=== PATIENT | male | born 1955 | race Caucasian/White ===

== ENCOUNTER → 2017-04-28 | Outpatient (CLI) | payer OTHER, SELFPAY | PROVIDERS: Visit Provider Nurse Practitioner | DX: R92.8 Other abnormal and inconclusive findings on diagnostic imaging of breast (principal) ==

== ENCOUNTER 2017-05-10 10:35 | Emergency (ER) | payer OTHER, SELFPAY ==
[2017-05-10 11:02] VITALS: BP 124/85; PULSE 105; RESP 20; TEMP 37.7; O2SAT 98; BMI 24.4
--- NOTE | 2017-05-10 11:35 | HMH.EDUTC ---
[facility] [place] Disposition Clinical Impression: Influenza Disposition: Home, Self-Care Condition on Discharge: Good Instructions: Influenza (Alternative Therapy), DI for Influenza -- Adult Additional Instructions: Drink plenty of water Take medications as prescribed No work for the next few days as you are contagious, you may return to work when you are fever free for 24 hours without taking Motrin or Tylenol for fever Over the counter Motrin or Tylenol as needed for fever or pain Follow up with family doctor Return if needed Prescriptions: Oseltamivir Phosphate [Tamiflu 75mg Capsule] 75 mg PO BID 5 Days #10 capsule Referrals: Cliff Montelongo MD [Primary Care Provider] - Time of Disposition: 11:54 Medical Decision Making Vital Signs: 05/10/17 11:02 Temperature 99.8 F H Temperature Source Oral Pulse Rate [Right Radial] 105 H Respiratory Rate 20 Blood Pressure [Right Arm] 124/85 Blood Pressure Mean [Right Arm] 98 Blood Pressure Source [Right Arm] Automatic Cuff Blood Pressure Position [Right Arm] Sitting 02 Sat by Pulse Oximetry 98 Oxygen Delivery Method Room Air - Mateo Inquiry Pt receiving controlled substance: No Mateo was queried for this patient: No [facility] [place] HPI - General Chief complaint: Urgent Treatment Center Stated complaint: de la rosa cough Time Seen by Provider: 05/10/17 11:40 Mode of Arrival: Ambulatory Source of Information: Patient Limitations: No Limitations Description of Symptoms (Recalled from Triage Doc. by RN): WENT TO DR ON TUESDAY WAS DIAGNOSED WITH BRONCHITIS AND SINUS INFECTION AND FEELS WORSE. WAS PUT ON CEFDINIR. HEENT Symptoms (Recalled from RN notes): Yes (SINUS INFECTION) Resp Symptoms (Recalled from RN notes): Yes (BRONCHITIS) Skin Symptoms (Recalled from RN notes): No MS Symptoms (Recalled from RN notes): No Functional Status (Recalled from RN notes): NA - History of Present Illness Provider Complaint: Patient state that he seen his family doctor on Tuesday and was diagnosed with bronchitis and cough State that he was started on Medication Then was diagnosed with FLU yesterday and today he feels even worse and now running a fever and thinks he may have the flu too Onset (ago): day(s) (2-3) Radiation: non-radiation Severity: moderate Severity scale (1-10): 4 Quality: other Consistency: constant Relieving factors: none Exacerbating factors: none Associated symptoms: cough, fever/chills, headaches Treatments prior to arrival: other - Related Data Previous Rx's Medication Instructions Recorded Oseltamivir Phosphate [Tamiflu 75 mg PO BID 5 Days #10 capsule 05/10/17 75mg Capsule] Allergies Allergy/AdvReac Type Severity Reaction Status Date / Time No Known Drug Allergies Allergy Unknown Verified 05/10/17 11:08 [NKDA] - Worker's Comp Is this a Worker's Comp case?: No H History Medical History: Denies:: Cancer, Diabetes Mellitus Type 1, Diabetes Mellitus Type 2, MRSA Amputation: No Fractures: No - *Social History Smoking Status: Never smoker Alcohol Intake: never - Psychiatric History Expresses thoughts of harming self/others: None Suicide Plan Description: No Plan ROS Obtained: Yes All systems reviewed & no additional complaints except as noted - Constitutional Reports body ache(s), Reports chills, Reports fever(s), Reports headache(s) - Eyes Denies blurry vision, Denies change in vision - ENT Reports headache(s), Reports nasal discharge, Reports sore throat - Cardiovascular Denies chest pain - Respiratory Reports cough, Denies shortness of breath, Denies coughing up blood, Denies wheezing - Gastrointestinal Denies abdominal pain Physical Exam - General General appearance: alert, in no apparent distress - Head Head exam: normal inspection - Eye Eye exam: Present: normal appearance, PERRL - ENT ENT exam: Present: other (th) - Expanded ENT Exam Throat exam: Present: other Comment: THroat mildly red, irritated,
--- NOTE | 2017-05-10 11:41 | ED_ITS ---
[facility] [place] Clinical Impression: Influenza Disposition: Home, Self-Care Condition on Discharge: Good Instructions: Influenza (Alternative Therapy), DI for Influenza -- Adult Additional Instructions: Drink plenty of water Take medications as prescribed No work for the next few days as you are contagious, you may return to work when you are fever free for 24 hours without taking Motrin or Tylenol for fever Over the counter Motrin or Tylenol as needed for fever or pain Follow up with family doctor Return if needed Prescriptions: Oseltamivir Phosphate [Tamiflu 75mg Capsule] 75 mg PO BID 5 Days #10 capsule Referrals: Cliff Montelongo MD [Primary Care Provider] - Time of Disposition: 11:54 Medical Decision Making Vital Signs: 05/10/17 11:02 Temperature 99.8 F H Temperature Source Oral Pulse Rate [Right Radial] 105 H Respiratory Rate 20 Blood Pressure [Right Arm] 124/85 Blood Pressure Mean [Right Arm] 98 Blood Pressure Source [Right Arm] Automatic Cuff Blood Pressure Position [Right Arm] Sitting 02 Sat by Pulse Oximetry 98 Oxygen Delivery Method Room Air - Mateo Inquiry Pt receiving controlled substance: No Mateo was queried for this patient: No [facility] [place] HPI - General Chief complaint: Urgent Treatment Center Stated complaint: de la rosa cough Time Seen by Provider: 05/10/17 11:40 Mode of Arrival: Ambulatory Source of Information: Patient Limitations: No Limitations Description of Symptoms (Recalled from Triage Doc. by RN): WENT TO DR ON TUESDAY WAS DIAGNOSED WITH BRONCHITIS AND SINUS INFECTION AND FEELS WORSE. WAS PUT ON CEFDINIR. HEENT Symptoms (Recalled from RN notes): Yes (SINUS INFECTION) Resp Symptoms (Recalled from RN notes): Yes (BRONCHITIS) Skin Symptoms (Recalled from RN notes): No MS Symptoms (Recalled from RN notes): No Functional Status (Recalled from RN notes): NA - History of Present Illness Provider Complaint: Patient state that he seen his family doctor on Tuesday and was diagnosed with bronchitis and cough State that he was started on Medication Then was diagnosed with FLU yesterday and today he feels even worse and now running a fever and thinks he may have the flu too Onset (ago): day(s) (2-3) Radiation: non-radiation Severity: moderate Severity scale (1-10): 4 Quality: other Consistency: constant Relieving factors: none Exacerbating factors: none Associated symptoms: cough, fever/chills, headaches Treatments prior to arrival: other - Related Data Previous Rx's Medication Instructions Recorded Oseltamivir Phosphate [Tamiflu 75 mg PO BID 5 Days #10 capsule 05/10/17 75mg Capsule] Allergies Allergy/AdvReac Type Severity Reaction Status Date / Time No Known Drug Allergies Allergy Unknown Verified 05/10/17 11:08 [NKDA] - Worker's Comp Is this a Worker's Comp case?: No H History Medical History: Denies:: Cancer, Diabetes Mellitus Type 1, Diabetes Mellitus Type 2, MRSA Amputation: No Fractures: No - *Social History Smoking Status: Never smoker Alcohol Intake: never - Psychiatric History Expresses thoughts of harming self/others: None Suicide Plan Description: No Plan ROS Obtained: Yes All systems reviewed & no additional complaints except as noted - Constitutional Reports body ache(s), Reports chills, Reports fever(s), Reports headache(s) - Eyes
[2017-05-10 16:16] LABS: UTC Influenza A Antigen Positive (Negative); UTC Influenza B Antigen Negative (Negative)
== END 2017-05-10 12:25 | disposition home or self-care (01) ==
PROVIDERS: Emergency Provider Nurse Practitioner; Family Provider Nurse Practitioner; PCP Family Medicine
DX: J10.1 Influenza due to other identified influenza virus with other respiratory manifestations (principal)
CPT/HCPCS: 87276; 87804; 99201

== ENCOUNTER 2020-02-23 12:17 | Emergency (ER) | payer MEDICARE, SELFPAY ==
[2020-02-23 12:31] VITALS: BP 144/91; PULSE 89; RESP 18; TEMP 36.9; O2SAT 99; BMI 25.7
--- NOTE | 2020-02-23 12:37 | HMH.EDUTC ---
[facility] [place] Impression: Shingles Qualifiers: Herpes zoster complications: without complications Qualified Code(s): B02.9 - Zoster without complications Disposition: Home, Self-Care Condition on Discharge: Good Instructions: Shingles, DI for Shingles, Acyclovir Additional Instructions: Take medication as prescribed Take your medicines exactly as prescribed. Antiviral medicine helps you get better faster and may help prevent later problems. Try not to scratch or pick at the blisters. They will crust over and fall off on their own if you leave them alone. Put cool, wet cloths on the area to relieve pain and itching. You can also use calamine lotion. Try not to use so much lotion that it cakes and is hard to get off. Do not use thick ointment, such as petroleum jelly, on the sores. This will keep them from drying and healing. To help remove loose crusts, soak them in tap water. This can help decrease oozing, and dry and soothe the skin. Take an [id number]-[id number] pain medicine, such as acetaminophen (Tylenol), ibuprofen (Advil, Motrin), or naproxen (Aleve). Avoid close contact with people until the blisters have healed. It is very important for you to avoid contact with anyone who has never had chickenpox or the chickenpox vaccine. women, young babies, and anyone else who has a hard time fighting infection (such as someone with HIV, diabetes, or cancer) is especially at risk Follow up with Eye Doctor if you notice them close to eye or on eye lid Follow up with Family Doctor if no improvement or any worsening of symptoms Straight to ER if any life threatening symptoms Return if needed Prescriptions: Acyclovir [Acyclovir 800mg tab] 800 mg PO 5XDAY 7 Days #35 tab Transmission Status: Pending to [facility] #[id number] Referrals: Tiffanie Melgar APRN [Primary Care Provider] - As needed Time of Disposition: 12:43 Medical Decision Making - Mateo Inquiry Pt receiving controlled substance: No Mateo was queried for this patient: No Vital Signs: 02/23/20 12:31 Temperature 98.4 F Temperature Source Oral Pulse Rate [Right Brachial] 89 Respiratory Rate 18 Blood Pressure [Right Arm] 144/91 H Blood Pressure Mean [Right Arm] 108 Blood Pressure Source [Right Arm] Automatic Cuff Blood Pressure Position [Right Arm] Sitting 02 Sat by Pulse Oximetry 99 [facility] [place] - General Stated complaint: shingles ? Time Seen by Provider: 02/23/20 12:37 Mode of Arrival: Ambulatory Description of Symptoms (Recalled from Triage Doc. by RN): Pt c/o painful rash on rt side of face and head x's 4 days HEENT Symptoms (Recalled from RN notes): No Resp Symptoms (Recalled from RN notes): No Skin Symptoms (Recalled from RN notes): Yes MS Symptoms (Recalled from RN notes): No Functional Status (Recalled from RN notes): wnl - History of Present Illness Provider Complaint: Patient state that the skin felt sore on the right side of his forehead for several days then this morning he noticed he was breaking out in a blister rash on on his forehead and worried that he may have shingles so he come in - Related Data Previous Rx's Medication Instructions Recorded Oseltamivir Phosphate [Tamiflu 75 mg PO BID 5 Days #10 capsule 05/10/17 75mg Capsule] Acyclovir [Acyclovir 800mg tab] 800 mg PO 5XDAY 7 Days #35 tab 02/23/20 Allergies Allergy/AdvReac Type Severity Reaction Status Date / Time No Known Drug Allergies Allergy Unknown Verified 05/10/17 11:08 [NKDA] - Worker's Comp Is this a Worker's Comp case?: No Is this an H Worker's Comp?: No Is this a Dierks Worker's Comp?: No [facility] History - Hepatitis A Screen Drug use history?: No High risk sexual behaviors?: No History of sexually transmitted infection?: No Currently employed?: No Childcare worker?: No Do you have indoor plumbing?: Yes Do you have electricity?: Yes Attestation statement:: This patient has been screened for Hepatitis A risk factors
[2020-02-23 13:16] VITALS: BP 144/91; PULSE 89; RESP 18; TEMP 36.9; O2SAT 99
== END 2020-02-23 13:17 | disposition home or self-care (01) ==
PROVIDERS: Emergency Provider Nurse Practitioner; PCP Nurse Practitioner Family
DX: B02.9 Zoster without complications (principal)
CPT/HCPCS: G0463; 99201

== ENCOUNTER 2022-06-07 09:30 | Emergency (ER) | payer MEDICARE, SELFPAY ==
[2022-06-07 09:50] VITALS: BP 140/86; PULSE 72; RESP 18; TEMP 36.8; O2SAT 98; BMI 24.9
--- NOTE | 2022-06-07 10:09 | EXP.UTC ---
Discharge Plan Disposition Patient Disposition: Home, Self-Care Condition: Good Prescriptions Prescriptions: New benzonatate 100 mg capsule 100 mg PO TID PRN (Reason: cough) Qty: 30 0RF azithromycin [Zithromax Z-Galen] 250 mg tablet See Rx Instructions .ROUTE .COMPLEX 5 Days Qty: 6 0RF Rx Instructions: For 250 mg dose pack: take 500 mg today (day 1), then 250 mg for 4 days (days 2-5) methylprednisolone [Medrol (Galen)] 4 mg tablets,dose pack See Rx Instructions .Route .COMPLEX 6 Days Qty: 21 0RF Rx Instructions: taper pack; No Action oseltamivir [Tamiflu] 75 MG capsule 75 mg PO BID 5 Days Qty: 10 0RF acyclovir 800 MG tablet 800 mg PO 5XDAY 7 Days Qty: 35 0RF Referrals Follow up/Referrals: Jaspreet Spain MD [Primary Care Provider] - See instructions Activity Restrictions/Add. Instructions Additional Instructions/Restrictions: Disucuss with your Physyican about Paxlovid if you decide you want to try it Use saline spray in nose may help with nasal congestion and dryness Make sure that you are drinking plenty of fluids Straight to ER if you start having any shortness of breath, pain in chest or any life threatening symptoms Clinical Impressions Clinical Impression: Sinusitis Instructions Patient Instructions: Sinusitis, Cough Discharge ED Provider: Savannah Heard [facility] [place] HPI General Stated complaint: home test positive,sore throat,headache Mode of Arrival: Ambulatory Source of Information: Patient Limitations: No Limitations Time Seen by Provider: 06/07/22 10:09 Description of Symptoms (Recalled from Triage Doc. by RN): PATIENT C/O SORE THROAT, FATIGUE, AND DRY COUGH X 2 DAYS. HE REPORTS A POSITIVE AT HOME COVID TEST HEENT Symptoms (Recalled from RN notes): Yes Resp Symptoms (Recalled from RN notes): Yes Skin Symptoms (Recalled from RN notes): No MS Symptoms (Recalled from RN notes): No Functional Status (Recalled from RN notes): WNL History of Present Illness Provider Complaint: Patient state that he has been having sinus congestion and dryness at times States that he has been having cough and sore throat States that he did take a home COVID test and it was positive but not how accurate it was States that he came in to get something to help with the cough and congestion Related Data Previous Rx's Medication Instructions Recorded oseltamivir 75 mg capsule (Tamiflu) 75 mg PO BID 5 days #10 caps 05/10/17 acyclovir 800 mg tablet 800 mg PO 5XDAY 7 days #35 tabs 02/23/20 azithromycin 250 mg tablet See Rx Instructions PO .COMPLEX 5 06/07/22 (Zithromax Z-Galen) days #6 tabs benzonatate 100 mg capsule 100 mg PO TID PRN cough #30 caps 06/07/22 methylprednisolone 4 mg tablets in See Rx Instructions .Route 06/07/22 a dose pack (Medrol (Galen)) .COMPLEX 6 days #21 tabs Allergies Allergy/AdvReac Type Severity Reaction Status Date / Time No Known Drug Allergies Allergy Unknown Verified 05/10/17 11:08 [NKDA] Worker's Comp Is this a Worker's Comp case?: No [facility] Disclaimer: The information contained in this section may have been updated after the patient was seen, as this information can be updated by other users. Medical History (Updated 06/07/22 @ 10:24 by Savannah Heard APRN) Hyperlipidemia Hypertension Surgical History (Updated 06/07/22 @ 10:01 by Jeanne Timmons RN) History of hand surgery History of shoulder surgery Social History (Updated 06/07/22 @ 10:01 by Jeanne Timmons RN) Smoking Status: Never smoker alcohol intake: never current occupational status: employed Travel in the last 8 weeks: None ROS Obtained: Yes All systems reviewed & no additional complaints except as documented and Yes Systems reviewed as appropriate & no additional complaints except as documented Constitutional Constitutional: Reports system reviewed and no additional complaints, except as documented and Reports as per HPI ENT Ears, Nose, Mouth, and Throat: R
[2022-06-07 10:27] VITALS: BP 140/86; PULSE 72; RESP 18; TEMP 36.8; O2SAT 98
== END 2022-06-07 10:31 | disposition home or self-care (01) ==
PROVIDERS: Emergency Provider Nurse Practitioner; PCP Family Medicine
DX: J32.9 Chronic sinusitis, unspecified (principal)
CPT/HCPCS: 99212; 99213; G0463

== ENCOUNTER → 2022-08-30 09:38 | Outpatient (CLI) | payer MEDICARE, SELFPAY ==
--- NOTE | 2022-08-30 09:48 | XR_ITS ---
FINAL REPORT CLINICAL HISTORY: foot pain FINDINGS: LEFT FOOT Three views of the left foot demonstrate no acute fracture or dislocation. There is mild hallux valgus deformity. Mild degenerative changes are seen. Chronic calcification is noted adjacent to the 2nd MTP joint. There is posterior calcaneal spurring. Soft tissues are unremarkable. IMPRESSION: Degenerative changes without acute bony abnormality. Reviewed, Interpreted and Dictated by Sang Moore III, MD Transcribed by Edith Ayers Authenticated and [facility]
--- NOTE | 2022-08-30 09:48 | XR_ITS ---
FINAL REPORT CLINICAL HISTORY: foot pain FINDINGS: RIGHT FOOT Three views of the right foot demonstrate no acute fracture or dislocation. Mild degenerative changes are seen. There is posterior calcaneal spurring. Soft tissues are unremarkable. IMPRESSION: Degenerative changes without acute bony abnormality. Reviewed, Interpreted and Dictated by Sang Moore III, MD Transcribed by Edith Ayers Authenticated and . [facility]
== END ==
PROVIDERS: PCP Family Medicine; Visit Provider Podiatrist
DX: M79.672 Pain in left foot (principal); M79.671 Pain in right foot
CPT/HCPCS: 73630

== ENCOUNTER → 2022-09-13 16:53 | Outpatient (CLI) | payer MEDICARE, SELFPAY | PROVIDERS: PCP Nurse Practitioner Family; Visit Provider Nurse Practitioner Family | DX: J02.9 Acute pharyngitis, unspecified (principal) | CPT/HCPCS: 87070 ==

== ENCOUNTER → 2023-01-12 23:18 | Outpatient (CLI) | payer MEDICARE, SELFPAY ==
[2023-01-12 17:59] LABS: Microscopic, Urine URINE MICROSCOPIC (MICROSCOPIC)
[2023-01-12 18:08] LABS: Appearance,Urine CLEAR (Clear); Bilirubin,Urine Negative (Negative); Blood, Urine TRACE-I (Negative); Color,Urine YELLOW (Yellow); Glucose,Urine (UA) Negative (Negative); Ketones,Urine Negative (Negative); Leukocyte Esterase,Urine Negative (Negative); Nitrate,Urine Negative (Negative); Protein,Urine Negative (Negative); Specific Gravity, Urine 1.015 (1.005-1.030); Urobilinogen,Urine 0.2 EU/dl (0.2)
[2023-01-12 18:16] LABS: Basophils % 0.5 % (0.1-2.0); Eosinophils # 0.3 K/mm3 (0.0-0.4); Eosinophils % 4.4 % (0.1-12.0); Hematocrit 48.9 % (42.0-52.0); Hemoglobin 16.5 g/dL (14.1-18.0); Lymphocytes % 34.3 % (10-50); Mean Corpuscular HGB Conc 33.7 g/dL (31.8-35.4); Mean Corpuscular Hemoglobin 33.1 pg (27.0-31.2); Mean Corpuscular Volume 98.2 fl (80-94); Mean Platelet Volume 8.4 fl (7.4-10.4); Monocytes # 0.4 K/mm3 (0.1-1.0); Monocytes % 7.5 % (1.7-9.3); Neutrophils # 3.2 K/mm3 (1.8-7.8); Neutrophils % 53.4 % (37.0-80.0); Platelet Count 244 K/mm3 (142-424); Red Blood Count 4.98 M/mm3 (4.60-6.20); Red Cell Distribution Width 12.3 % (11.5-17.5); White Blood Count 5.9 K/mm3 (4.8-10.8)
[2023-01-12 19:07] LABS: Alanine Aminotransferase 44 U/L (12-78); Albumin Level 4.8 g/dl (3.5-5.0); Albumin/Globulin Ratio 1.5 (1.1-1.8); Alkaline Phosphatase 71 U/L (38-126); Anion Gap 18.2 mEq/L (5-15); Aspartate Amino Transferase 40 U/L (17-59); Bilirubin,Total 0.7 mg/dl (0.2-1.3); Blood Urea Nitrogen 9 mg/dl (9-20); Calcium 9.5 mg/dl (8.4-10.2); Carbon Dioxide 25 mmol/L (22.0-30.0); Chloride 98 mmol/L (98-107); Chol/HDL Ratio 3.4 (1-3.5); Cholesterol 199 mg/dl (140-200); Estimated Glomerular Filt Rate 75 ml/min (>60); GFR (African American) 91 ML/MIN (>60); Globulin 3.3 g/dL (1.3-3.2); Glucose 95 mg/dl (74-100); HDL Cholesterol 59 mg/dl (40-60); Potassium 4.2 mmoL/L (3.5-5.1); Sodium 137 mmol/L (136-145); Total Protein,Serum 8.1 g/dl (6.3-8.2); Triglycerides 148 mg/dl (30-150); VLDL Cholesterol 30 mg/dL (0-40)
[2023-01-12 19:19] LABS: Direct LDL Cholesterol 101.54 mg/dL (100-129)
[2023-01-12 19:24] LABS: Free T4 (Free Thyroxine) 0.93 ng/dl (0.78-2.19)
[2023-01-12 19:25] LABS: 25-OH Vitamin D, Total 33.7 ng/mL (30-100)
[2023-01-12 19:33] LABS: Hemoglobin A1C 5.5 % (4.0-6.0)
[2023-01-12 19:39] LABS: Prostate Specific Ag Screen 2.2 ng/ml (0.0-4.0); Thyroid Stimulating Hormone 3.46 uIU/mL (0.465-4.68)
[2023-01-12 19:58] LABS: Vitamin B12 331 pg/mL (239-931)
[2023-01-12 20:33] LABS: Microalbumin/Creatinine Ratio 6.9
[2023-01-12 20:42] LABS: Creatinine,Urine Random 149 mg/dL (Not Estab.)
[2023-01-12 20:56] LABS: RBC,Urine Occasional #/hpf (0-3)
== END ==
PROVIDERS: Visit Provider Nurse Practitioner Family
DX: E55.9 Vitamin D deficiency, unspecified (principal); R53.83 Other fatigue; I10 Essential (primary) hypertension; Z13.1 Encounter for screening for diabetes mellitus; E78.5 Hyperlipidemia, unspecified; Z12.5 Encounter for screening for malignant neoplasm of prostate; E11.9 Type 2 diabetes mellitus without complications; Z79.899 Other long term (current) drug therapy
CPT/HCPCS: 80053; 80061; 81001; 82043; 82306; 82570; 82607; 83036; 84155; 84439; 84443; 85025; G0103

== ENCOUNTER 2023-06-14 13:18 | Outpatient (CLI) | payer MEDICARE, SELFPAY ==
[2023-06-14 13:46] LABS: Basophils # 0.1 K/mm3 (0-0.2); Eosinophils # 0.3 K/mm3 (0.0-0.4); Eosinophils % 4.1 % (0.1-12.0); Hematocrit 51.8 % (42.0-52.0); Hemoglobin 17.7 g/dL (14.1-18.0); Lymphocytes # 2.2 K/mm3 (0.7-4.5); Lymphocytes % 33.5 % (10-50); Mean Corpuscular HGB Conc 34.2 g/dL (31.8-35.4); Mean Corpuscular Hemoglobin 33.3 pg (27.0-31.2); Mean Corpuscular Volume 97.5 fl (80-94); Mean Platelet Volume 7.7 fl (7.4-10.4); Monocytes # 0.5 K/mm3 (0.1-1.0); Monocytes % 7.5 % (1.7-9.3); Neutrophils # 3.5 K/mm3 (1.8-7.8); Neutrophils % 53.9 % (37.0-80.0); Platelet Count 232 K/mm3 (142-424); Red Blood Count 5.31 M/mm3 (4.60-6.20); Red Cell Distribution Width 12.9 % (11.5-17.5); White Blood Count 6.5 K/mm3 (4.8-10.8)
[2023-06-14 14:02] LABS: Chloride 102 mmol/L (98-107); Sodium 138 mmol/L (136-145)
[2023-06-14 14:03] LABS: Potassium 4.3 mmoL/L (3.5-5.1)
[2023-06-14 14:05] LABS: Alanine Aminotransferase 48 U/L (12-78); Albumin Level 4.9 g/dl (3.5-5.0); Albumin/Globulin Ratio 1.6 (1.1-1.8); Alkaline Phosphatase 61 U/L (38-126); Anion Gap 13.3 mEq/L (5-15); Aspartate Amino Transferase 41 U/L (17-59); Bilirubin,Total 0.7 mg/dl (0.2-1.3); Blood Urea Nitrogen 11 mg/dl (9-20); Carbon Dioxide 27 mmol/L (22.0-30.0); Cholesterol 210 mg/dl (140-200); Estimated Glomerular Filt Rate 67 ml/min (>60); GFR (African American) 81 ML/MIN (>60); Globulin 3.1 g/dL (1.3-3.2); Triglycerides 248 mg/dl (30-150); VLDL Cholesterol 50 mg/dL (0-40)
[2023-06-14 14:06] LABS: Calcium 9.7 mg/dl (8.4-10.2); Chol/HDL Ratio 4.7 (1-3.5); Glucose 103 mg/dl (74-100); HDL Cholesterol 45 mg/dl (40-60)
[2023-06-14 14:17] LABS: Direct LDL Cholesterol 110.64 mg/dL (100-129)
[2023-06-14 14:57] LABS: 25-OH Vitamin D, Total 22.5 ng/mL (30-100)
[2023-06-14 15:34] LABS: Troponin I < 0.01 ng/ml (0.00-0.034)
[2023-06-14 15:44] LABS: Thyroid Stimulating Hormone 3.69 uIU/mL (0.465-4.68)
[2023-06-14 15:56] LABS: Hemoglobin A1C 5.6 % (4.0-6.0)
[2023-06-14 16:03] LABS: Vitamin B12 481 pg/mL (239-931)
== END 2023-06-14 23:59 ==
LOC: LAB.DROPOF 13:19
PROVIDERS: PCP Nurse Practitioner Family; Visit Provider Nurse Practitioner Family
DX: R53.83 Other fatigue (principal); E11.9 Type 2 diabetes mellitus without complications; Z13.1 Encounter for screening for diabetes mellitus; I10 Essential (primary) hypertension; R07.89 Other chest pain; E55.9 Vitamin D deficiency, unspecified; Z79.899 Other long term (current) drug therapy
CPT/HCPCS: 80053; 80061; 82306; 82607; 83036; 84439; 84443; 84484; 85025

== ENCOUNTER 2023-07-26 10:22 | Outpatient (CLI) | payer MEDICARE, SELFPAY ==
--- NOTE | 2023-07-26 10:25 | XR_ITS ---
FINAL REPORT CLINICAL HISTORY: left thumb pain and swelling..no truama FINDINGS: Left hand Three views were obtained. There is no acute fracture or dislocation. There are moderate to severe degenerative changes of the 1st carpometacarpal. Mild degenerative changes are seen elsewhere. No soft tissue abnormality is identified. IMPRESSION: Degenerative changes as detailed above. Reviewed, Interpreted and Dictated by Sang Moore III, MD Transcribed by Carisa Braun Authenticated and [facility]
[2023-07-26 13:33] LABS: Basophils # 0.1 K/mm3 (0-0.2); Eosinophils # 0.2 K/mm3 (0.0-0.4); Eosinophils % 3.9 % (0.1-12.0); Hematocrit 48.7 % (42.0-52.0); Hemoglobin 16.5 g/dL (14.1-18.0); Lymphocytes % 33.7 % (10-50); Mean Corpuscular HGB Conc 33.9 g/dL (31.8-35.4); Mean Corpuscular Hemoglobin 34.4 pg (27.0-31.2); Mean Corpuscular Volume 101.6 fl (80-94); Monocytes # 0.4 K/mm3 (0.1-1.0); Monocytes % 6.7 % (1.7-9.3); Neutrophils # 3.2 K/mm3 (1.8-7.8); Neutrophils % 54.6 % (37.0-80.0); Platelet Count 228 K/mm3 (142-424); Red Cell Distribution Width 13.1 % (11.5-17.5); White Blood Count 5.8 K/mm3 (4.8-10.8)
[2023-07-26 14:44] LABS: Albumin Level 4.9 g/dl (3.5-5.0); Albumin/Globulin Ratio 1.9 (1.1-1.8); Alkaline Phosphatase 62 U/L (38-126); Anion Gap 16.7 mEq/L (5-15); Bilirubin,Total 0.8 mg/dl (0.2-1.3); Blood Urea Nitrogen 7 mg/dl (9-20); Calcium 9.7 mg/dl (8.4-10.2); Carbon Dioxide 22 mmol/L (22.0-30.0); Chloride 103 mmol/L (98-107); Estimated Glomerular Filt Rate 75 ml/min (>60); GFR (African American) 90 ML/MIN (>60); Globulin 2.6 g/dL (1.3-3.2); Glucose 101 mg/dl (74-100); Potassium 3.7 mmoL/L (3.5-5.1); Sodium 138 mmol/L (136-145); Total Protein,Serum 7.5 g/dl (6.3-8.2); Uric Acid 8.6 mg/dl (3.5-8.5)
[2023-07-26 14:45] LABS: Alanine Aminotransferase 49 U/L (12-78)
[2023-07-26 15:42] LABS: Aspartate Amino Transferase 41 U/L (17-59)
== END 2023-07-26 23:59 ==
LOC: RAD 10:23
PROVIDERS: PCP Nurse Practitioner Family; Visit Provider Nurse Practitioner Family
DX: M79.645 Pain in left finger(s) (principal); M79.89 Other specified soft tissue disorders
CPT/HCPCS: 73130; 80053; 84550; 85025

== ENCOUNTER 2023-10-31 14:16 | Outpatient (CLI) | payer MEDICARE, SELFPAY ==
[2023-10-31 14:38] LABS: Chol/HDL Ratio 3.6 (1-3.5); Cholesterol 197 mg/dl (140-200); HDL Cholesterol 55 mg/dl (40-60); Triglycerides 260 mg/dl (30-150); Uric Acid 6.5 mg/dl (3.5-8.5); VLDL Cholesterol 52 mg/dL (0-40)
[2023-10-31 14:49] LABS: Direct LDL Cholesterol 94.28 mg/dL (100-129)
[2023-10-31 14:54] LABS: 25-OH Vitamin D, Total 41.6 ng/mL (30-100)
== END 2023-10-31 23:59 | disposition home or self-care (01) ==
LOC: LAB.DROPOF 14:16
PROVIDERS: PCP Nurse Practitioner Family; Visit Provider Nurse Practitioner Family
DX: E78.5 Hyperlipidemia, unspecified (principal); M10.9 Gout, unspecified; E55.9 Vitamin D deficiency, unspecified
CPT/HCPCS: 80061; 82306; 84550

== ENCOUNTER 2024-01-12 08:00 | Outpatient (RCR) | payer MEDICARE, SELFPAY ==
--- NOTE | 2023-12-13 14:09 | HMH.OTOPEV ---
OT Inpatient Evaluation Rehab OT Outpatient Eval Start: 12/13/23 13:41 Freq: Status: Active Protocol: Document 12/13/23 13:42 JAMAALBERNIE (Rec: 12/13/23 14:06 MAILE [id number]) E-signed By Angelita Cai, OT Outpatient Therapy Subjective History Subjective History 68 year old male referred to skilled OP OT services for R shld pain since September 2023. Patient verbalize having intermittent pain with no known injuries or images. 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 Symptom Type Ache Symptoms Relieved By Nothing Symptoms Aggravated By Physical Activity Prior Functional Limitations None Current Functional Limitations Reaching Symptom Description Constant and Continuous Level of pain today (0-10) 5 Pain scale - at its best (0-10) 5 Pain scale - at its worst (0-10) 6 Shoulder/Elbow Eval Shoulder Objective Measurements Shoulder ROM Right Shoulder Abduction Active Range of 150 Motion (degrees) Shoulder Flexion Active Range of Motion 150 (degrees) Query Text: Shoulder External Rotation Active Range 60 of Motion (degrees) Shoulder Internal Rotation Active Range 50 of Motion (degrees) pain with active ROM shoulder exam right standard Shoulder MMT Shoulder Abduction Strength Grade 3- Fair- Shoulder Extension Strength Grade 3- Fair- Shoulder Flexion Strength Grade 3- Fair- Shoulder Horizontal Abduction Strength 3- Fair- Grade Shoulder Horizontal Adduction Strength 3- Fair- Grade Infraspinatus/Teres Minor Strength Grade 3- Fair- Shoulder External Rotation Strength 3- Fair- Grade Shoulder Internal Rotation Strength 3- Fair- Grade Shoulder Special Tests impingement sign present shoulder exam right standard Shoulder Empty Can (Supraspinatus) Test Positive Right Shoulder Méndez-Lauri Impingement Positive Right Test Elbow Objective Measurements QuickDASH Activities Please rate your ability to do the following activities in the last week by selecting the number below the appropriate response. 1. Open a tight or new jar. Moderate difficulty 2. 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 3. Carry a shopping bag or briefcase. Mild difficulty 4. Wash your back. Mild difficulty 5. Use a knife to cut food. Mild difficulty 6. Recreational activities in which you Mild difficulty take some force or impact through your arm, shoulder, or hand (e.g., golf, hammering, tennis, etc.). 7. During the past week, to what extent Not at all has your arm, shoulder or hand problem interfered with your normal social activities with family, friends, neighbors or groups? 8. During the past week, were you Not limited at all limited in your work or other regular daily activites as a result of your arm, shoulder or hand problem? 9. Arm, shoulder or hand pain. Moderate 10. Tingling (pins and needles) in your None arm, shoulder or hand. 11. During the past week, how much Mild difficulty difficulty have you had sleeping because of the pain in your arm, shoulder or hand? Quick DASH 22 OT Outpatient Assessment Impairments Problems/Impairments Impaired Range of Motion, Impaired Strength,Subjective C /O Pain Prognosis Rehab Potential Good Clinical Impression Consistent with Diagnosis Yes Short Term Goals Number of Weeks 2 Increase Range of Motion Yes: Improve AROM of R UE shld flex: 160; abd: 160; er: 70; ir: 55 Increase Strength Yes: Improve R UE shld strength to 3+ to 4-/5 throughout Decrease Subjective C/O Pain Yes: 5/10 pain at worst Patient to be Ind w/ HEP Yes: AAROM Patient to be Ind w/ Advanced HEP Yes: Strengthening Improve Quick Dash Score Yes: 18 Half-Way Goals Number of Weeks 4 Increase Range of Motion Yes: Improve AROM of R UE shld flex: 170; abd: 170; er: 80; ir: 70 Increase Strength Yes: Improve R UE shld strength to 3+ to 4-/5 throughout Decrease Subjective C/O Pain Yes: 4/10 pain at worst Patient to be Ind w/ HEP Yes: AROM Patient to be Ind w/ Advanced HEP Yes: Advance strengthening Improve Quick Dash Score Yes: 15 Outpatient Therapy Plan of Care Treatment Plan May Include Therapeutic Exercise Including Home Yes Exercise Program Manual Therapy Techniques Yes Therapeutic Activities to Return to Yes Previous Functional/Work Level Thermal Modalities Yes Electrical Stimulation Yes Ultrasound/Phonophoresis Yes Iontophoresis Yes Eval/Re-Eval Yes Aquatic Therapy Yes Frequency Times per week 2x/wk Duration Number of Weeks 4 weeks Addendums This patient is a candidate for social No or vocational rehab? Patient/Guardian verbally acknowledges Yes understanding of treatment program and consents to further treatment? Patient/Guardian verbally acknowledges Yes understanding of diagnosis, prognosis and goals for treatment? Eval Complexity OT Charge [id number] - Low Complexity PHYSICIAN CERTIFICATION: I certify the specified therapy services for Reggie S Sosbe are required, authorized, and reviewed every 30 days.
== END 2024-01-12 08:05 | disposition home or self-care (01) ==
LOC: OT 08:00
PROVIDERS: Visit Provider Nurse Practitioner Family
DX: M25.511 Pain in right shoulder (principal)
CPT/HCPCS: 97014; 97035; 97110; 97140; 97165; 97530; G0283

== ENCOUNTER 2024-01-16 14:56 | Outpatient (CLI) | payer MEDICARE, SELFPAY ==
[2024-01-16 15:01] LABS: Cholesterol 212 mg/dl (140-200); HDL Cholesterol 53 mg/dl (40-60); Triglycerides 312 mg/dl (30-150); VLDL Cholesterol 62 mg/dL (0-40)
[2024-01-16 15:12] LABS: Direct LDL Cholesterol 94.03 mg/dL (100-129)
[2024-01-16 16:04] LABS: HIV (1&2) Antibody Rapid NONREACTIVE (NONREACTIVE)
[2024-01-17 09:21] LABS: HCV Ab Non Reactive (Non Reactive)
== END 2024-01-16 23:59 | disposition home or self-care (01) ==
LOC: LAB.DROPOF 14:57
PROVIDERS: PCP Nurse Practitioner Family; Visit Provider Nurse Practitioner Family
DX: Z11.59 Encounter for screening for other viral diseases (principal); Z11.4 Encounter for screening for human immunodeficiency virus [HIV]; E78.5 Hyperlipidemia, unspecified
CPT/HCPCS: 80061; 86803; 87389

== ENCOUNTER 2024-03-13 08:54 | Outpatient (CLI) | payer MEDICARE, SELFPAY ==
--- NOTE | 2024-03-13 08:59 | XR_ITS ---
FINAL REPORT TECHNIQUE: AP and axillary views of the right shoulder were obtained. CLINICAL HISTORY: torn ligaments, torn muscles COMPARISON: None FINDINGS: RIGHT SHOULDER: Two images of the right shoulder were obtained. There is no evidence of fracture or dislocation. There is moderate acromioclavicular degenerative change present. Mild glenohumeral degenerative changes present as well. There is no soft tissue abnormality identified. IMPRESSION: Mild and moderate degenerative change as described above without acute bony abnormality. Authenticated and [facility]
== END 2024-03-13 23:59 | disposition home or self-care (01) ==
LOC: RAD 08:55
PROVIDERS: PCP Nurse Practitioner Family; Visit Provider Orthopaedic Surgery
DX: M25.411 Effusion, right shoulder (principal)
CPT/HCPCS: 73030

== ENCOUNTER 2024-07-09 11:07 | Outpatient (CLI) | payer MEDICARE, SELFPAY ==
[2024-07-09 13:27] LABS: Microscopic, Urine URINE MICROSCOPIC (MICROSCOPIC)
[2024-07-09 13:38] LABS: Basophils # 0.1 K/mm3 (0-0.2); Eosinophils # 0.1 K/mm3 (0.0-0.4); Hematocrit 45.5 % (42.0-52.0); Hemoglobin 15.5 g/dL (14.1-18.0); Lymphocytes # 2.3 K/mm3 (0.7-4.5); Lymphocytes % 32.7 % (10-50); Mean Corpuscular HGB Conc 34.1 g/dL (31.8-35.4); Mean Corpuscular Hemoglobin 32.6 pg (27.0-31.2); Mean Corpuscular Volume 95.8 fl (80-94); Mean Platelet Volume 9.6 fl (7.4-10.4); Monocytes # 0.6 K/mm3 (0.1-1.0); Monocytes % 8.9 % (1.7-9.3); Neutrophils # 3.9 K/mm3 (1.8-7.8); Neutrophils % 54.4 % (37.0-80.0); Platelet Count 305 K/mm3 (142-424); Red Blood Count 4.75 M/mm3 (4.60-6.20); Red Cell Distribution Width 12.3 % (11.5-17.5); White Blood Count 7.1 K/mm3 (4.8-10.8)
[2024-07-09 13:52] LABS: Appearance,Urine CLEAR (Clear); Bilirubin,Urine Negative (Negative); Blood, Urine Negative (Negative); Color,Urine YELLOW (Yellow); Glucose,Urine (UA) Negative (Negative); Ketones,Urine Negative (Negative); Leukocyte Esterase,Urine Negative (Negative); Nitrate,Urine Negative (Negative); Protein,Urine Negative (Negative); Urobilinogen,Urine 0.2 EU/dl (0.2)
[2024-07-09 14:20] LABS: Alanine Aminotransferase 44 U/L (12-78); Albumin/Globulin Ratio 2.2 (1.1-1.8); Alkaline Phosphatase 33 U/L (38-126); Aspartate Amino Transferase 42 U/L (17-59); Bilirubin,Total 0.8 mg/dl (0.2-1.3); Blood Urea Nitrogen 13 mg/dl (9-20); Carbon Dioxide 29 mmol/L (22.0-30.0); Chloride 101 mmol/L (98-107); Cholesterol 189 mg/dl (140-200); Estimated Glomerular Filt Rate 61 ml/min (>60); GFR (African American) 73 ML/MIN (>60); Globulin 2.3 g/dL (1.3-3.2); Total Protein,Serum 7.3 g/dl (6.3-8.2); Triglycerides 124 mg/dl (30-150); VLDL Cholesterol 25 mg/dL (0-40)
[2024-07-09 14:22] LABS: Bacteria,Urine Trace /lpf
[2024-07-09 14:26] LABS: Anion Gap 11.7 mEq/L (5-15); Calcium 10.1 mg/dl (8.4-10.2); Erythrocyte Sedimentation Rate 5 mm/hr (0-20); Glucose 88 mg/dl (74-100); HDL Cholesterol 47 mg/dl (40-60); Potassium 4.7 mmoL/L (3.5-5.1); Sodium 137 mmol/L (136-145)
[2024-07-09 14:31] LABS: C-Reactive Protein 0.8 mg/L (0-4); Direct LDL Cholesterol 113.79 mg/dL (100-129)
[2024-07-09 14:36] LABS: Free T4 (Free Thyroxine) 1.49 ng/dl (0.78-2.19)
[2024-07-09 14:37] LABS: 25-OH Vitamin D, Total 52.2 ng/mL (30-100)
[2024-07-09 14:53] LABS: Prostate Specific Ag Screen 1.5 ng/ml (0.0-4.0); Thyroid Stimulating Hormone 2.45 uIU/mL (0.465-4.68)
[2024-07-09 15:10] LABS: Vitamin B12 393 pg/mL (239-931)
[2024-07-09 15:27] LABS: Total Iron Binding Capacity 445 ug/dL (261-462)
[2024-07-09 15:55] LABS: Ferritin 250 ng/ml (17.9-464)
[2024-07-09 16:16] LABS: Iron 142 ug/dL (49-181)
== END 2024-07-09 23:59 | disposition home or self-care (01) ==
LOC: LAB.DROPOF 07-11 11:07
PROVIDERS: PCP Nurse Practitioner Family; Visit Provider Nurse Practitioner Family
DX: I10 Essential (primary) hypertension (principal); R53.83 Other fatigue; E55.9 Vitamin D deficiency, unspecified; M10.9 Gout, unspecified; E78.5 Hyperlipidemia, unspecified; Z12.5 Encounter for screening for malignant neoplasm of prostate; Z13.1 Encounter for screening for diabetes mellitus
CPT/HCPCS: 80053; 80061; 81001; 82306; 82607; 82728; 83036; 83540; 83550; 84156; 84439; 84443; 84550; 85025; 85651; 86140; 87086; G0103

== ENCOUNTER 2024-07-20 16:03 | Emergency (ER) | payer MEDICARE, SELFPAY ==
[2024-07-20] VITALS (9 sets, daily range): BP systolic 112–127; BP diastolic 70–82; PULSE 50–78; RESP 16; TEMP 36.6–36.9; O2SAT 94–100; BMI 24.4
--- NOTE | 2024-07-20 16:49 | PC.NURSE ---
patient brought back to room 5 reporting entry specialists neck pain that is more so on the left side that radiates up his left side of head. denies any injuries intermitment pain that is sharp shooting. hurts worse with movement.
--- NOTE | 2024-07-20 16:50 | ED_ITS ---
Discharge Plan Disposition Patient Disposition: Home, Self-Care Chief Complaint: Neck Pain/Injury Prescriptions Prescriptions: New methocarbamol 750 mg tablet 1,500 mg PO TID 5 Days Qty: 30 0RF prednisone 20 mg tablet 40 mg PO DAILY 5 Days Qty: 10 0RF No Action hydrochlorothiazide 12.5 mg tablet 12.5 mg PO DAILY Qty: 90 3RF propranolol 20 mg tablet 20 mg PO BID PRN (Reason: anxiety) Qty: 20 2RF coenzyme Q10 [Co Q-10] 100 mg capsule 200 mg PO DAILY cholecalciferol (vitamin D3) 50 mcg (2,000 unit) capsule 50 mcg PO DAILY omega-3 fatty acids 500 mg capsule 1,000 mg PO DAILY lisinopril 20 mg tablet 20 mg PO DAILY Qty: 90 3RF omeprazole 20 mg capsule,delayed release(DR/EC) 20 mg PO Q OTHER DAY allopurinol 100 mg tablet 100 mg PO DAILY Qty: 90 3RF Rx Instructions: start on 07/27/23 clotrimazole 1 % cream 1 applic topical BID 14 Days Qty: 30 0RF lidocaine HCl 10 mg/mL (1 %) solution 10 mg IJ ONCE Qty: 1 0RF triamcinolone acetonide [Kenalog] 40 mg/mL suspension 40 mg IJ ONCE Qty: 1 0RF atorvastatin 40 mg tablet 40 mg PO HS Qty: 90 3RF fenofibrate nanocrystallized 145 mg tablet 145 mg PO DAILY Qty: 90 3RF mecobalamin (vitamin B12) [B12 Active] 1,000 mcg tablet,chewable 1,000 mcg PO DAILY Qty: 30 0RF Referrals Follow up/Referrals: Elissa Gomez APRN [Primary Care Provider] - See instructions Activity Restrictions/Add. Instructions Additional Instructions/Restrictions: Call your family doctor to establish care for this visit to the emergency department and schedule follow-up within 48 hours to ensure improvement. If you have any worsening of your condition or any other concerning signs or symptoms, return to the emergency department or your primary care doctor for further evaluation. Robaxin can cause you to feel drowsy. Do not drive, operate heavy machinery, or engage in any activity that may make you tired, fall asleep, and because harm to yourself or others while taking this medication. Prednisone each morning after waking up, do not take it before bed because it will cause insomnia. Clinical Impressions Clinical Impression: Strain of cervical portion of trapezius muscle Cervical muscle strain Qualifiers: Encounter type: initial encounter Qualified Code(s): S16.1XXA - Strain of muscle, fascia and tendon at neck level, initial encounter Instructions Patient Instructions: DI for Neck Pain Print Language Print Language: Portuguese Discharge ED Provider: Jonathon Kilpatrick General Adult HPI General Chief complaint: Neck Pain/Injury Stated complaint: neck pain Time Seen by Provider: 07/20/24 16:10 Mode of Arrival: Ambulatory Source of Information: Patient and Relative Description of Symptoms (Recalled from ER Triage Doc. by RN): Pt presents for evaluation of neck pain and swelling x 4 days. Pt denies any injuries. History of Present Illness HPI narrative: Please note that above description of symptoms, in this electronic medical record under categorization of recalled from ER triage doctor by RN are reflective of an initial nursing assessment, however, is not reflective of my full history and physical exam that was personally taken and clarified. Consequentially, this preceding description of symptoms, which may include the patient's categorized chief complaint in the EMR, do not reflect my personal clinical impression, and the ultimate description of history of present illness and patient stated complaints should be deferred to this section of the note. Unless stated otherwise or congruent with this section of the note, additional signs, symptoms, or incongruence should be interpreted as inaccurate with my clinical impression. Related Data Home Medications ?Medication ?Instructions ?Recorded ?Confirmed cholecalciferol (vitamin D3) 50 50 mcg PO DAILY 07/26/23 07/11/24 mcg (2,000 unit) capsule coenzyme Q10 100 mg capsule (Co 200 mg PO DAILY 07/26/23 07/11/24 Q-10) omeprazole 20 mg capsule,delayed 20 mg PO Q OTHER DAY 12/06/23 07/11/24 release omega-3 fatty acids 500 mg capsule 1,000 mg PO DAILY 01/16/24 07/11/24 Previous Rx's ?Medication ?Instructions ?Recorded atorvastatin 40 mg tablet 40 mg PO HS #90 tabs 10/31/23 lisinopril 20 mg tablet 20 mg PO DAILY #90 tabs 10/31/23 hydrochlorothiazide 12.5 mg tablet 12.5 mg PO DAILY #90 tabs 01/16/24 fenofibrate nanocrystallized 145 145 mg PO DAILY #90 tabs 01/17/24 mg tablet clotrimazole 1 % topical cream 1 applic topical BID 2 weeks #30 04/09/24 grams allopurinol 100 mg tablet 100 mg PO DAILY #90 tabs 07/09/24 mecobalamin (vitamin B12) 1,000 1,000 mcg PO DAILY #30 tabs 07/10/24 mcg chewable tablet (B12 Active) propranolol 20 mg tablet 20 mg PO BID PRN anxiety #20 tabs 07/11/24 methocarbamol 750 mg tablet 1,500 mg (2 x 750 mg) PO TID 5 07/20/24 days #30 tabs prednisone 20 mg tablet 40 mg (2 x 20 mg) PO DAILY 5 days 07/20/24 #10 tabs Allergies Allergy/AdvReac Type Severity Reaction Status Date / Time No Known Drug Allergies Allergy Unknown Other Verified 07/20/24 17:00 ([facility]) [facility] Disclaimer: The information contained in this section may have been updated after the patient was seen, as this information can be updated by other users. Medical History Ringworm of body Abrasion of forearm, right, infected Chest discomfort Swelling of left thumb Pain of left thumb Acute middle ear effusion PND (post-nasal drip) Piriformis syndrome Sinusitis Hyperlipidemia Hypertension Shingles Influenza Surgical History History of shoulder surgery left in 2013, [facility] History of hand surgery Social History Smoking Status: Never smoker alcohol intake: never current occupational status: employed Travel in the last 8 weeks: None Have you lived/traveled outside [place] in past 30 days?: No Contact w/someone who lives/traveled outside US past 30 days?: No Exposure to someone with infectious disease in past 14 days?: No Do you have a fever (greater than 100.4 F or 38 C)?: No Have you tested positive for COVID-19: No Exposed to someone with COVID-19 in past 14 days?: No Do you have a sore throat?: No Do you have a cough?: No Do you have any weakness?: No Do you have any diarrhea?: No Are you experiencing any unusual bleeding?: No Do you have any muscle aches/pain?: No Do you have any abdominal pain?: No Are you experiencing loss of taste or smell?: No Other Medical History Have you received the Pneumonia Vaccine: No ROS Obtained: Yes All systems reviewed & no additional complaints except as documented Physical Exam General General appearance: alert Head Head exam: atraumatic and normocephalic Eye Eye exam: Present normal appearance, PERRL and EOMI Neck Neck exam: Present full ROM, trachea midline, tenderness and other (Tenderness about muscle body trapezius running up to the base of skull on the left. Midline spinal tenderness overlying C5. Bilateral TMs normal. No lymphadenopathy. Range of motion intact, but guarded secondary to left-sided neck pain.) Respiratory Respiratory exam: Absent respiratory distress, wheezes, stridor, accessory muscle use or prolonged expiratory phase Cardiovascular Cardiovascular exam: Present other (Pulses equal symmetric in upper and lower extremities) Abdominal Exam Abdominal exam: Present soft; Absent distention, tenderness or pulsatile mass Extremities Exam Extremities exam: Absent edema Neurological Exam Neurological exam: Present alert, oriented X3 and CN II-XII intact; Absent motor sensory deficit Skin Skin exam: Present warm and dry; Absent diaphoresis or erythema Medical Decision Making Medical Records Medical records reviewed: Yes I reviewed the patient's medical records. Screening: Per USPSTF and CDC recommendations, given the prevalence of disease in our region, it is our hospital?s policy to screen for HIV and viral Hepatitis for all patients aged 18 and over and those with ongoing risk factors. Mateo Inquiry Pt receiving controlled substance: No Mateo was queried for this patient: No Vital Signs: 07/20/24 16:15 07/20/24 16:41 07/20/24 17:00 Temperature 98.4 F Temperature Source Temporal Artery Scan Pulse Rate 73 72 Pulse Rate [Right] 78 Respiratory Rate 16 Blood Pressure 117/82 113/76 Blood Pressure [Right Arm] 127/78 Blood Pressure Mean Blood Pressure Mean [Right Arm] 94 Blood Pressure Source [Right Arm] Automatic Cuff Blood Pressure Position [Right Arm] Sitting 02 Sat by Pulse Oximetry 100 97 94 L Oxygen Delivery Method Room Air 07/20/24 17:15 07/20/24 17:30 07/20/24 18:00 Temperature Temperature Source Pulse Rate 70 60 54 L Pulse Rate [Right] Respiratory Rate Blood Pressure 113/81 112/73 Blood Pressure [Right Arm] Blood Pressure Mean 89 88 Blood Pressure Mean [Right Arm] Blood Pressure Source [Right Arm] Blood Pressure Position [Right Arm] 02 Sat by Pulse Oximetry 99 96 99 Oxygen Delivery Method 07/20/24 18:31 07/20/24 19:00 Temperature Temperature Source Pulse Rate 61 62 Pulse Rate [Right] Respiratory Rate 16 Blood Pressure 126/70 121/78 Blood Pressure [Right Arm] Blood Pressure Mean 88 90 Blood Pressure Mean [Right Arm] Blood Pressure Source [Right Arm] Blood Pressure Position [Right Arm] 02 Sat by Pulse Oximetry 98 96 Oxygen Delivery Method Lab Data Lab Results 07/20/24 16:38: WBC 8.4, RBC 4.38 L, Hgb 14.3, Hct 41.1 L, MCV 93.8, MCH 32.6 H, MCHC 34.8, RDW 11.9, Plt Count 283, MPV 8.9, Neut % (Auto) 62.4, Lymph % (Auto) 24.1, Hayes % (Auto) 11.2 H, Eos % (Auto) 1.0, Baso % (Auto) 0.6, Neut # (Auto) 5.2, Lymph # (Auto) 2.0, Hayes # (Auto) 0.9, Eos # (Auto) 0.1, Baso # (Auto) 0.1, Sodium 132 L, Potassium 3.4 L, Chloride 98, Carbon Dioxide 26, Anion Gap 11.4, BUN 13, Creatinine 1.30 H, Estimated Creat Clear 65, Estimated GFR 55 L, Est GFR ( Amer) 67, Glucose 99, Calcium 9.7, Magnesium 1.6, Total Bilirubin 0.7, AST 35, ALT 37, Alkaline Phosphatase 32 L, Total Protein 7.7, Albumin 4.8, Globulin 2.9, Albumin/Globulin Ratio 1.7 07/20/24 16:38 07/20/24 16:38 Orders (Tests/Meds): ED MEDICATIONS Discontinued Medications Generic Name Dose Route Start Last Admin Trade Name Freq PRN Reason Stop Dose Admin Dexamethasone Sodium Phosphate 10 mg 07/20/24 16:48 07/20/24 17:08 Dexamethasone 4mg/Ml 1ml Vial IV 07/20/24 16:49 10 mg ONCE ONE Administration Sodium Chloride 1,000 mls @ 999 mls/hr 07/20/24 17:58 07/20/24 18:01 Sod Chlor 0.9% 1000ml Bag IV 07/20/24 18:58 999 mls/hr .Q1H1M ONE Administration Ketorolac Tromethamine 15 mg 07/20/24 16:48 07/20/24 17:08 Ketorolac 30mg/Ml Vial IV 07/20/24 16:49 15 mg ONCE ONE Administration Methocarbamol 1,500 mg 07/20/24 16:48 07/20/24 17:07 Methocarbamol 500mg Tablet PO 07/20/24 16:49 1,500 mg ONCE ONE Administration Potassium Chloride 60 meq 07/20/24 18:19 07/20/24 18:28 Potassium Chloride 20meq Tab PO 07/20/24 18:20 60 meq ONCE ONE Administration ORDERS Category Date Time Status CBC w/Auto Diff [Complete Blood Count Auto Diff] Stat Lab 07/20/24 16:38 Completed CMP [Comprehensive Metabolic Panel] Stat Lab 07/20/24 16:38 Completed MAG [Magnesium] Stat Lab 07/20/24 16:38 Completed Medical Decision Narrative: 69-year-old male presenting with neck stiffness. States that it has been going on for about 2 days getting a little worse. Had something similar in the past and was given steroids and muscle relaxers that went away. States it feels exact same. No vision changes, headache, fevers, vomiting, changes in mental status, confusion, recent illness, etc. Neck stiffness feels as if it is the muscles on the left side of his neck that radiate up to the base of his skull. No falls, traumas, or any other relevant history. History was obtained via conversation with patient and family. On arrival, patient hemodynamically stable, alert, oriented x4, appropriate, GCS 15, moving all extremities spontaneously, pupils equal and reactive to light. Full physical exam performed and significant for very clinically well-appearing male who is in no acute distress. Ranging head up, down, left, right without issue. Does appear to be mildly tender when looking to the right. Midline tenderness at C5, but states that he thinks this may be common/normal for him. Paraspinal muscle tenderness on the left as compared to the right, but both sides do appear tender. He does have tenderness down the trapezius muscle into his left shoulder as well. Pupils equal and reactive, TM normal with normal external auditory canal on the left. No lymphadenopathy and neurologically intact. Differential includes muscle spasm, cervical muscle strain, trapezius spasm, less likely to be meningitis, dissection, spinal cord injury, among others. Patient placed on continuous cardiac monitoring and continuous pulse ox with initial blood pressure 112/73, heart rate 54, saturation 99% on room air. Patient was given Robaxin, Toradol, steroid for symptomatic management and correction of underlying abnormalities. Workup independently interpreted and significant for nonactionable CBC, but chemistry with mild dehydration creatinine 1.3. Mild hyponatremia, normal saline bolus was administered. CT imaging of the head and neck was considered, not deemed necessary. No systemic or constitutional symptoms, largely normal workup other than mild hypokalemia which was repleted. On reevaluation, patient states he is feeling much better, ranging his neck, has very minimal discomfort. Given patient presentation, workup, history, this most likely represents muscle spasm. Because patient at baseline without signs or symptoms of clinical decompensation, deemed appropriate for discharge. Results were relayed to patient who voiced understanding and were agreeable to outpatient management and follow up. I discussed my clinical impression with patient and answered all questions. At this time, the evidence for any other entities in the differential is insufficient to warrant any further testing or ED observation. This was explained as well. Advisory was given that persistent or worsening symptoms require further evaluation. I confirmed the understanding of this discussion. 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 Electronic environmental health manager of the spoken language may permit errors. Although I have reviewed the note, some errors may still exist. Critical Care Critical Care Time Critical Care Time: No
[2024-07-20 16:56] LABS: Basophils # 0.1 K/mm3 (0-0.2); Basophils % 0.6 % (0.1-2.0); Eosinophils # 0.1 K/mm3 (0.0-0.4); Hematocrit 41.1 % (42.0-52.0); Hemoglobin 14.3 g/dL (14.1-18.0); Lymphocytes % 24.1 % (10-50); Mean Corpuscular HGB Conc 34.8 g/dL (31.8-35.4); Mean Corpuscular Hemoglobin 32.6 pg (27.0-31.2); Mean Corpuscular Volume 93.8 fl (80-94); Mean Platelet Volume 8.9 fl (7.4-10.4); Monocytes # 0.9 K/mm3 (0.1-1.0); Monocytes % 11.2 % (1.7-9.3); Neutrophils # 5.2 K/mm3 (1.8-7.8); Neutrophils % 62.4 % (37.0-80.0); Platelet Count 283 K/mm3 (142-424); Red Blood Count 4.38 M/mm3 (4.60-6.20); Red Cell Distribution Width 11.9 % (11.5-17.5); White Blood Count 8.4 K/mm3 (4.8-10.8)
[2024-07-20 16:58] LABS: Albumin Level 4.8 g/dl (3.5-5.0); Chloride 98 mmol/L (98-107)
[2024-07-20 16:59] LABS: Potassium 3.4 mmoL/L (3.5-5.1); Sodium 132 mmol/L (136-145)
[2024-07-20 17:01] LABS: Anion Gap 11.4 mEq/L (5-15); Carbon Dioxide 26 mmol/L (22.0-30.0)
[2024-07-20 17:02] LABS: Calcium 9.7 mg/dl (8.4-10.2); Glucose 99 mg/dl (74-100); Magnesium 1.6 mg/dl (1.6-2.3)
[2024-07-20] MEDS: METHOCARBAMOL 500MG TABLET 1500 MG PO (17:07)
[2024-07-20] MEDS: KETOROLAC 30MG/ML VIAL 15 MG IV (17:08)
[2024-07-20] MEDS: DEXAMETHASONE 4MG/ML 1ML VIAL 10 MG IV (17:08)
[2024-07-20 17:15] LABS: Alanine Aminotransferase 37 U/L (12-78); Albumin/Globulin Ratio 1.7 (1.1-1.8); Alkaline Phosphatase 32 U/L (38-126); Aspartate Amino Transferase 35 U/L (17-59); Bilirubin,Total 0.7 mg/dl (0.2-1.3); Blood Urea Nitrogen 13 mg/dl (9-20); Creatinine Clearance Estimated 65 mL/min (50-200); Estimated Glomerular Filt Rate 55 ml/min (>60); GFR (African American) 67 ML/MIN (>60); Globulin 2.9 g/dL (1.3-3.2); Total Protein,Serum 7.7 g/dl (6.3-8.2)
[2024-07-20] MEDS: 0.9 % SODIUM CHLORIDE 1000ML 1,000 ML 999 ML IV (18:01)
--- NOTE | 2024-07-20 18:07 | PC.NURSE ---
rounded on patient he reports decrease in his neck pain. call light in reach
[2024-07-20] MEDS: POTASSIUM CHLORIDE 20MEQ TAB 60 MEQ PO (18:28)
== END 2024-07-20 19:33 | disposition home or self-care (01) ==
PROVIDERS: Emergency Provider Emergency Medicine; PCP Nurse Practitioner Family
DX: S16.1XXA Strain of muscle, fascia and tendon at neck level, initial encounter (principal); M54.2 Cervicalgia
CPT/HCPCS: 80053; 83735; 85025; 96361; 96374; 96375; 99283; J1100; J1885; J7030

== ENCOUNTER 2024-11-19 15:44 | Outpatient (CLI) | payer MEDICARE, SELFPAY ==
--- NOTE | 2024-11-19 15:48 | XR_ITS ---
FINAL REPORT CLINICAL HISTORY: back pain FINDINGS: 2 views of the thoracic spine were obtained. No fracture is seen. Alignment is normal. Moderate diffuse degenerative changes are seen and mild spondylosis. IMPRESSION: 1. Degenerative changes. 2. No acute fracture. Reviewed, Interpreted and Dictated by Guanako Jose MD Transcribed by Edith Ayers Authenticated and . [facility]
[2024-11-19 16:51] LABS: Microscopic, Urine URINE MICROSCOPIC (MICROSCOPIC)
[2024-11-19 17:23] LABS: Hematocrit 43.2 % (42.0-52.0); Hemoglobin 14.5 g/dL (14.1-18.0); Immature Granulocytes % 0.6 %; Mean Corpuscular HGB Conc 33.6 g/dL (31.8-35.4); Mean Corpuscular Hemoglobin 32.5 pg (27.0-31.2); Mean Corpuscular Volume 96.9 fl (80-94); Nucleated Red Blood Cells % 0 %; Platelet Count 311 K/mm3 (142-424); Red Blood Count 4.46 M/mm3 (4.60-6.20); Red Cell Distribution Width-SD 45.4 fL; White Blood Count 7.1 K/mm3 (4.8-10.8)
[2024-11-19 18:30] LABS: Chloride 101 mmol/L (98-107); Potassium 5.2 mmoL/L (3.5-5.1)
[2024-11-19 18:32] LABS: Creatinine,Serum 1.50 mg/dl (0.66-1.25); Estimated Glomerular Filt Rate 47 ml/min (>60); GFR (African American) 56 ML/MIN (>60)
[2024-11-19 18:33] LABS: Alkaline Phosphatase 34 U/L (38-126); Bilirubin,Total 0.5 mg/dl (0.2-1.3); Carbon Dioxide 28 mmol/L (22.0-30.0); Magnesium 1.6 mg/dl (1.6-2.3); Phosphorous 2.6 mg/dl (2.5-4.5)
[2024-11-19 18:41] LABS: Albumin Level 4.7 g/dl (3.5-5.0); Anion Gap 17.2 mEq/L (5-15); Sodium 141 mmol/L (136-145)
[2024-11-19 18:44] LABS: Alanine Aminotransferase 31 U/L (12-78); Albumin/Globulin Ratio 1.8 (1.1-1.8); Aspartate Amino Transferase 34 U/L (17-59); Blood Urea Nitrogen 15 mg/dl (9-20); Globulin 2.6 g/dL (1.3-3.2); Total Protein,Serum 7.3 g/dl (6.3-8.2)
[2024-11-19 18:45] LABS: Calcium 9.5 mg/dl (8.4-10.2); Glucose 87 mg/dl (74-100)
[2024-11-19 19:13] LABS: Bilirubin,Urine Negative (Negative); Color,Urine YELLOW (Yellow); Glucose,Urine (UA) Negative (Negative); Ketones,Urine Negative (Negative); Leukocyte Esterase,Urine Negative (Negative); PH,Urine 7.0 (5.0-8.5); Protein,Urine Negative (Negative); Specific Gravity, Urine 1.010 (1.005-1.030); Urobilinogen,Urine 1.0 EU/dl (0.2)
[2024-11-19 19:48] LABS: WBC,Urine Occasional #/hpf (0-3)
[2024-11-19 19:49] LABS: Bacteria,Urine Trace /lpf
== END 2024-11-19 23:59 | disposition home or self-care (01) ==
LOC: RAD 15:45
PROVIDERS: PCP Nurse Practitioner Family; Visit Provider Nurse Practitioner Family
DX: M47.814 Spondylosis without myelopathy or radiculopathy, thoracic region (principal); R53.83 Other fatigue; R00.1 Bradycardia, unspecified; R42 Dizziness and giddiness; I49.9 Cardiac arrhythmia, unspecified; R39.198 Other difficulties with micturition; R41.3 Other amnesia
CPT/HCPCS: 72070; 80053; 81001; 83735; 84100; 85025; 87086

== ENCOUNTER 2024-11-22 14:17 | Outpatient (CLI) | payer MEDICARE, SELFPAY ==
--- NOTE | 2024-11-22 14:30 | CA_ITS ---
APPROVED REPORT EXAM: Comprehensive 2D, Doppler, and color-flow Echocardiogram Variety Performer: MICHELLE Waters, RVS Ht: 6 ft 1 in Wt: 179lbs BSA: 2.05 BP: 112/78 mmHg Indications: Bradycardia, Palpitstion, Back pain 2D Dimensions Left Atrium 3.91 cm LA Volume 38.40 mL LA Volume Index [id number] mL/m2 (M/F) 16-34 M-Mode Dimensions RVDd 3.18 cm (0.9-2.6) LA Diam 3.58 cm (1.9-4.0) LVDd 4.53 cm (3.5-5.7) LVDs 2.84 cm (3.5-5.7) IVSd 1.06 cm (0.6-1.1) PWd 0.93 cm (0.6-1.1) EF (Teich) 67.40% EPSs 0.68 cm FS 37.30% EDV (Teich) 93.90 mL TAPSE 1.82 (<1.7) ESV (Teich) 30.60 mL LV Diastology E Decel Time 253 (160-240 msec) E/A Ratio 0.90 MED A' 12.10 cm/s LAT A' 9.80 cm/s Aortic Valve AoV Peak José Antonio. 143.0 (50-130 cm/s) AO Peak GR. 8.20 mmHg AO Mean GR. 4.00 (<5 mmHg) AO VTI 26.7 (18-25 cm) HUGO (VTI) 3.05 (2.5-4.5 cm2) Mitral Valve MV A Velocity 83.0 (40-130 cm/s) E/A Ratio 0.90 Tricuspid Valve TR P. Velocity 16.00 cm/s Left Ventricle The left ventricle is normal size. The left ventricular systolic function is normal. The left ventricular ejection fraction is within the normal range. There is increased overall thickness. There is normal LV segmental wall motion. Transmitral Doppler flow pattern suggests impaired LV relaxation. LVEF is 55%. Right Ventricle The right ventricle is normal size. The right ventricular systolic function is normal. Atria The left atrium size is normal. The right atrium size is normal. There is no Doppler evidence of interatrial shunt. Aortic Valve The aortic valve is mildly thickened. There is no aortic valvular stenosis. No aortic regurgitation is present. Mitral Valve The mitral valve is normal in structure. No evidence of mitral valve stenosis. Trace mitral regurgitation. Tricuspid Valve The tricuspid valve leaflets are thin and pliable. Trace tricuspid regurgitation. There is insufficient TR jet to estimate RVSP. Pulmonic Valve The pulmonary valve is normal in structure. Trace pulmonic regurgitation. Great Vessels The aortic root is normal in size. IVC is normal in size and collapses >50% with inspiration. Pericardium There is no pericardial effusion. Other Information Study Quality: Fair Conclusion Normal biventricular systolic function. No significant valvular stenosis or regurgitation. Electronically signed by : Tanya Valentino MD 11/27/2024 23:39:53
== END 2024-11-22 23:59 | disposition home or self-care (01) ==
LOC: RT 14:17
PROVIDERS: PCP Nurse Practitioner Family; Visit Provider Nurse Practitioner Family
DX: I49.9 Cardiac arrhythmia, unspecified (principal); M62.830 Muscle spasm of back; M54.6 Pain in thoracic spine; R39.198 Other difficulties with micturition; R42 Dizziness and giddiness; R00.1 Bradycardia, unspecified
CPT/HCPCS: 93306

== ENCOUNTER 2024-11-27 09:48 | Outpatient (CLI) | payer MEDICARE, SELFPAY | END 2024-11-27 23:59 | disposition home or self-care (01) | LOC: RT 09:49 | PROVIDERS: PCP Nurse Practitioner Family; Visit Provider Nurse Practitioner Family | DX: I49.1 Atrial premature depolarization (principal); I49.3 Ventricular premature depolarization; I47.19 Other supraventricular tachycardia; M62.830 Muscle spasm of back; M54.6 Pain in thoracic spine; R39.198 Other difficulties with micturition; R00.1 Bradycardia, unspecified | CPT/HCPCS: 93270 ==

== ENCOUNTER 2024-12-03 09:35 | Outpatient (CLI) | payer MEDICARE, SELFPAY ==
[2024-12-03 10:54] LABS: 25-OH Vitamin D, Total 35.1 ng/mL (30-100)
[2024-12-03 10:57] LABS: Free Thyroxine Index 2.8 ug/dL (5.93-13.13); T4 (Thyroxine) 8.0 ug/dl (5.53-11.0); Triiodothryronine (T3) Uptake 35 % (23.5-40.5)
[2024-12-03 11:10] LABS: Thyroid Stimulating Hormone 1.67 uIU/mL (0.465-4.68)
[2024-12-03 11:30] LABS: Vitamin B12 950 pg/mL (239-931)
[2024-12-03 11:40] LABS: Iron 118 ug/dL (49-181)
[2024-12-03 11:49] LABS: Total Iron Binding Capacity 418 ug/dL (261-462)
== END 2024-12-03 23:59 | disposition home or self-care (01) ==
LOC: LAB 09:36
PROVIDERS: PCP Nurse Practitioner Family; Visit Provider Nurse Practitioner
DX: I10 Essential (primary) hypertension (principal); R42 Dizziness and giddiness; R07.89 Other chest pain
CPT/HCPCS: 36415; 82306; 82607; 83540; 83550; 84436; 84443; 84479

== ENCOUNTER 2024-12-12 06:08 | Outpatient (CLI) | payer MEDICARE, SELFPAY | END 2024-12-12 23:59 | disposition home or self-care (01) | LOC: RAD 06:09 | PROVIDERS: PCP Nurse Practitioner Family; Visit Provider Nurse Practitioner | DX: R69 Illness, unspecified (principal) ==

== ENCOUNTER 2025-01-14 09:05 | Outpatient (CLI) | payer MEDICARE, SELFPAY ==
--- NOTE | 2025-01-14 09:08 | XR_ITS ---
FINAL REPORT CLINICAL HISTORY: right hip pain COMPARISON: None FINDINGS: AP and frog leg views of the right hip and an AP pelvis view were obtained. There is no acute fracture or dislocation. There is degenerative joint disease of the hips bilaterally, slightly asymmetric to the right. Soft tissues are unremarkable. 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 Reviewed, Interpreted and Dictated by Leanne Edge MD Transcribed by Madina Castillo Authenticated and . [facility]
== END 2025-01-14 23:59 | disposition home or self-care (01) ==
LOC: RAD 09:06
PROVIDERS: PCP Nurse Practitioner Family; Visit Provider Nurse Practitioner Family
DX: M16.11 Unilateral primary osteoarthritis, right hip (principal)
CPT/HCPCS: 73502

== ENCOUNTER 2025-01-28 10:44 | Outpatient (CLI) | payer MEDICARE, SELFPAY ==
[2025-01-28 15:55] LABS: Free T4 (Free Thyroxine) 1.16 ng/dl (0.78-2.19)
[2025-01-28 16:55] LABS: Thyroid Stimulating Hormone 2.62 uIU/mL (0.465-4.68)
--- OUTSIDE RECORDS SUMMARY | 2025-01-30 10:47 | XMS_ITS | Patient Health Record ---
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 Role Phone Prasanth Huang Primary Care Provider Medications Medication SIG (Take, Route, Frequency, Duration) [...] blood pressure reading without diagnosis of hypertension ([id number]) Elevated blood pressure reading without diagnosis of hypertension (796.2) Active confirmed Problem Hyperlipidemia (74198671) Hyperlipidemia (272.4) Active confirmed Plan Of Treatment No Information Insurance Providers Payer Name Payer Address Payer Phone Subscriber Number Group Number Insured Name Patient Relationship to Insured Coverage Start Date Coverage End Date [facility] [address] [address] [place] [phone] [id number] Baltazar Beaver Self - patient is the insured Medications Administered Medication Instructions Date of Administration Dosage Notes Dexamethasone 11/20/2012 4 mg Medical (General) History Medical History History ICD Code Dupuytren's contractures Histoplasmosis Hiatal hernia Surgical History Surgery Date(Month/Year) Lt hand Left hand surgery 04/24/2007
== END 2025-01-28 23:59 | disposition home or self-care (01) ==
LOC: LAB.DROPOF 01-30 10:45
PROVIDERS: PCP Nurse Practitioner Family; Visit Provider Nurse Practitioner Family
DX: E83.52 Hypercalcemia (principal)
CPT/HCPCS: 83970; 84439; 84443

== ENCOUNTER 2025-01-28 13:52 | Outpatient (CLI) | payer MEDICARE, SELFPAY ==
--- OUTSIDE RECORDS SUMMARY | 2025-01-28 13:55 | XMS_ITS | Patient Health Record ---
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 Role Phone Prasanth Huang Primary Care Provider [phone] Medications Medication SIG (Take, Route, Frequency, Duration) Notes Start Date End Date Status Gabapentin 300 MG 1 cap(s) orally 2 ti mes a day 03/06/2015 Active PriLOSEC OTC 20 MG 1 cap(s) orally qd prn Active Nabumetone 750 MG 2 tab(s) orally once a day 02/14 Active Cyclobenzaprine HCl 5 MG 1-2 tab(s) oral ly 3 times a day 02/14/2015 Active Problems Problem Type SNOMED Code ICD Code Onset Dates Problem Status W/U Status Risk Notes Problem Elevated blood pressure reading without diagnosis of hypertension (622316389) Elevated blood pressure reading without diagnosis of hypertension (796.2) Active confirmed Problem Hyperlipidemia (38186378) Hyperlipidemia (272.4) Active confirmed Plan Of Treatment No Information Insurance Providers Payer Name Payer Address Payer Phone Subscriber Number Group Number Insured Name Patient Relationship to Insured Coverage Start Date Coverage End Date [facility] [address] [address] [place] [phone] [id number] Baltazar Beaver Self - patient is the insured Medications Administered Medication Instructions Date of Administration Dosage Notes Dexamethasone 11/20/2012 4 mg Medical (General) History Medical History History ICD Code Dupuytren's contractures Histoplasmosis Hiatal hernia Surgical History Surgery Date(Month/Year) Lt hand Left hand surgery 04/24/2007
[2025-01-28 14:20] LABS: Chloride 101 mmol/L (98-107)
[2025-01-28 14:21] LABS: Potassium 4.7 mmoL/L (3.5-5.1); Sodium 139 mmol/L (136-145)
[2025-01-28 14:24] LABS: Anion Gap 15.7 mEq/L (5-15); Blood Urea Nitrogen 14 mg/dl (9-20); Calcium 10.5 mg/dl (8.4-10.2); Carbon Dioxide 27 mmol/L (22.0-30.0); Creatinine,Serum 1.20 mg/dl (0.66-1.25); Estimated Glomerular Filt Rate 60 ml/min (>60); GFR (African American) 73 ML/MIN (>60); Glucose 93 mg/dl (74-100)
[2025-01-28 16:33] LABS: Hemoglobin A1C 5.9 % (4.0-6.0)
== END 2025-01-28 23:59 | disposition home or self-care (01) ==
LOC: LAB.DROPOF 13:52
PROVIDERS: PCP Nurse Practitioner Family; Visit Provider Nurse Practitioner Family
DX: M25.551 Pain in right hip (principal); I10 Essential (primary) hypertension; R73.03 Prediabetes
CPT/HCPCS: 80048; 83036

== ENCOUNTER 2025-02-06 20:39 | Emergency (ER) | payer MEDICARE, SELFPAY ==
[2025-02-06 21:24] VITALS: BP 165/81; PULSE 52; RESP 16; TEMP 36.6; O2SAT 100; BMI 22.8
[2025-02-06 23:18] VITALS: BP 160/80; PULSE 52; RESP 20; TEMP 36.7; O2SAT 96
== END 2025-02-06 23:19 | disposition left against medical advice (07) ==
PROVIDERS: Emergency Provider Emergency Medicine; PCP Nurse Practitioner Family
DX: Z53.21 Procedure and treatment not carried out due to patient leaving prior to being seen by health care provider (principal)
CPT/HCPCS: 99211; 99282